=== PATIENT | female | born 1940 | race Caucasian/White ===

== ENCOUNTER → 2021-01-11 12:25 | Outpatient (CLI) | payer MEDICARE, SELFPAY ==
[2021-01-11 18:50] LABS: Add Manual Diff / Slide Review NO; Basophils Absolute Auto 100 /uL (0-100); Basophils Percent Auto 0.8 % (0-2); Eosinophils Absolute Auto 200 /uL (0-450); Eosinophils Percent Auto 2.6 % (2-4); Hematocrit 38.6 % (36-46); Hemoglobin 12.9 g/dL (12.0-16.0); Lymphocytes Absolute Auto 1600 /uL (1100-4500); Lymphocytes Percent Auto 19.6 % (25-40); Mean Corpuscular HGB Conc 33.5 % (30-36); Mean Corpuscular Hemoglobin 30.3 PG (26-34); Mean Corpuscular Volume 90.6 fL (80-100); Monocytes Absolute Auto 800 /uL (0-900); Monocytes Percent Auto 9.9 % (3-14); Neutrophils Absolute Auto 5400 /uL (1500-7000); Neutrophils Percent Auto 67.1 % (50-75); Platelet Count 229 X10^3/uL (150-400); Red Blood Cell Count 4.26 X10^6/uL (4.0-5.2); Red Cell Distribution Width 17.2 % (11.6-14.8)
[2021-01-11 19:03] LABS: Alanine Aminotransferase 209 IU/L (<35); Albumin 3.7 g/dL (3.5-5.0); Albumin Globulin Ratio 1.5 (1.0-2.8); Alkaline Phosphatase 171 U/L (38-126); Aspartate Aminotransferase 241 IU/L (14-36); BUN Creatinine Ratio 17.1 (6-22); Bilirubin Total 0.3 mg/dL (0.2-1.3); Blood Urea Nitrogen 12 mg/dL (7-17); Calcium 9.8 mg/dL (8.4-10.2); Carbon Dioxide 27 mmol/L (22-32); Chloride 103 mmol/L (98-107); Estimated Glomerular Filt Rate > 60.0 mL/min (>60); Globulin 2.4 g/dL (1.7-4.1); Glucose 137 mg/dL (80-110); HEMOLYSIS < 15 (0-50); Potassium 3.8 mmol/L (3.4-5.1); Sodium 135 mmol/L (137-145); Total Protein 6.1 g/dL (6.3-8.2)
[2021-01-11 19:42] LABS: COVID19 - ORCAS (NP or Nasal) Negative (Negative)
== END ==
PROVIDERS: PCP Physician Assistant; Visit Provider Physician Assistant
DX: R19.7 Diarrhea, unspecified (principal); R68.83 Chills (without fever); K57.92 Diverticulitis of intestine, part unspecified, without perforation or abscess without bleeding; Z20.822 Contact with and (suspected) exposure to COVID-19
CPT/HCPCS: 80053; 85025; U0003

== ENCOUNTER 2021-01-13 13:54 | Emergency (ER) | payer MEDICARE, SELFPAY ==
[2021-01-13 14:10] VITALS: BP 162/70; PULSE 79; RESP 14; TEMP 36.5; O2SAT 97; BMI 18.5
[2021-01-13 14:28] LABS: Add Manual Diff / Slide Review NO; Basophils Absolute Auto 0 /uL (0-100); Basophils Percent Auto 0.5 % (0-2); Eosinophils Absolute Auto 200 /uL (0-450); Hematocrit 39.4 % (36-46); Hemoglobin 12.8 g/dL (12.0-16.0); Lymphocytes Absolute Auto 1700 /uL (1100-4500); Lymphocytes Percent Auto 18.9 % (25-40); Mean Corpuscular HGB Conc 32.5 % (30-36); Mean Corpuscular Hemoglobin 29.6 PG (26-34); Monocytes Absolute Auto 1000 /uL (0-900); Monocytes Percent Auto 11.2 % (3-14); Neutrophils Absolute Auto 6100 /uL (1500-7000); Neutrophils Percent Auto 67.4 % (50-75); Platelet Count 250 X10^3/uL (150-400); Red Blood Cell Count 4.33 X10^6/uL (4.0-5.2); Red Cell Distribution Width 17.1 % (11.6-14.8)
[2021-01-13 14:38] LABS: Alanine Aminotransferase 100 IU/L (<35); Albumin 3.9 g/dL (3.5-5.0); Albumin Globulin Ratio 1.4 (1.0-2.8); Alkaline Phosphatase 110 U/L (38-126); Aspartate Aminotransferase 48 IU/L (14-36); BUN Creatinine Ratio 18.3 (6-22); Bilirubin Total 0.2 mg/dL (0.2-1.3); Blood Urea Nitrogen 15 mg/dL (7-17); Calcium 9.9 mg/dL (8.4-10.2); Carbon Dioxide 29 mmol/L (22-32); Chloride 103 mmol/L (98-107); Estimated Glomerular Filt Rate > 60.0 mL/min (>60); Globulin 2.7 g/dL (1.7-4.1); Glucose 106 mg/dL (80-110); HEMOLYSIS < 15 (0-50); Lipase 50 U/L (23-300); Potassium 3.8 mmol/L (3.4-5.1); Sodium 139 mmol/L (137-145); Total Protein 6.6 g/dL (6.3-8.2)
--- NOTE | 2021-01-13 18:17 | ED.RECABL ---
HPI - Recheck/Abnormal Lab/Rx General Chief Complaint: Recheck/Abnormal Lab/Rx Stated Complaint: High liver enzymes, sent by [facility] Time Seen by Provider: 01/13/21 18:08 Source: patient Mode of arrival: Ambulatory Limitations: no limitations History of Present Illness HPI narrative: 80-year-old woman with history of hypothyroidism, diabetes, hypertension and prior episodes of diverticulitis presents with a report of abnormal liver function tests on lab work done yesterday when she was diagnosed by her primary care provider with diverticulitis and started on Cipro and metronidazole. She notes that she has been having mild lower abdominal pain for about a month and had 12 days of diarrhea that resolved 48 hours ago. She was having increasing left lower quadrant pain and beginning to feel low-grade chills and was seen by her provider and started on Cipro and Flagyl and within 48 hours was feeling better. Also within 48 hours she was contacted by her provider with instructions to go to the emergency department because her liver enzymes were elevated. Related Data Home Medications Medication Instructions Recorded Confirmed aspirin 325 mg tablet 325 mg PO DAILY 01/11/21 01/11/21 calcium carbonate 600 mg calcium 600 mg PO BID 01/11/21 01/11/21 (1,500 mg) tablet cholecalciferol (vitamin D3) 25 25 mcg PO DAILY 01/11/21 01/11/21 mcg (1,000 unit) capsule esomeprazole magnesium 40 mg 40 mg PO DAILY 01/11/21 01/11/21 capsule,delayed release glimepiride 2 mg tablet (Amaryl) 2 mg PO QAM 01/11/21 01/11/21 insulin glargine 100 unit/mL 3 unit SUBCUT QPM ml 01/11/21 01/11/21 subcutaneous solution (Lantus U-100 Insulin) insulin lispro 100 unit/mL 6 unit SUBCUT DAILY ml 01/11/21 01/11/21 subcutaneous pen levothyroxine 75 mcg tablet 75 mcg PO DAILY 01/11/21 01/11/21 (Synthroid) losartan 25 mg tablet (Cozaar) 25 mg PO DAILY 01/11/21 01/11/21 metformin 500 mg tablet,extended 2,000 mg PO QPM tab 01/11/21 01/11/21 release 24hr polyethylene glycol 3350 17 17 g PO DAILY 01/11/21 01/11/21 gram/dose oral powder (Miralax) rosuvastatin 5 mg tablet (Crestor) 5 mg PO DAILY 01/11/21 01/11/21 trazodone 50 mg tablet 25 mg PO BEDTIME PRN 01/11/21 01/11/21 vit B complex 100 combo no.2 100 tab PO 01/11/21 01/11/21 mg tablet,extended release (B-100 Complex ER) Previous Rx's Medication Instructions Recorded ciprofloxacin HCl 500 mg tablet 500 mg PO BID #20 tab 01/11/21 (Cipro) metronidazole 500 mg tablet 500 mg PO TID #30 tab 01/11/21 (Flagyl) Allergies Allergy/AdvReac Type Severity Reaction Status Date / Time meperidine [From Demerol] Allergy Mild itching Verified 01/13/21 14:10 Review of Systems Review of Systems Narrative: Pertinent positive and negative findings as per HPI Remainder of review of systems is otherwise unremarkable for Constitutional: Fevers, weakness ENT: No sore throat, neck pain, ear pain CV: Chest pain, palpitations, Respiratory: Cough, wheeze, dyspnea : Dysuria, hematuria, Patient History Medical History (Updated 01/14/21 @ 16:52 by Adri Lancaster MD) Diabetes Diverticulitis Hyperlipidemia Hypertension Hypothyroidism (acquired) Social History Smoking Status: Never smoker Smoking Status: Never smoker alcohol intake frequency: 0-2 drinks per day Substance Use Type: does not use Exam Narrative Exam Narrative: General: Healthy appearing, in no acute distress. Able to give a complete and coherent history. Well-nourished well-developed HEENT: Moist mucous membranes, normal sclera with reactive pupils, Respiratory: Lungs are clear to auscultation, no wheezing no rales no rhonchi. Full and symmetrical air movement Cardiac: Regular rate and rhythm no murmurs no bruits Abdomen: Soft, mild tenderness in the left lower quadrant without rebound or guarding, good bowel tones, no flank pain Skin: Warm and dry, no rashes, no jaundice Neurologic: Grossly neurologically intact with no obvious asymmetries or abnormalities Extremities: No trauma, well perfused Psych: Cooperative, appropriate insight and affect Initial Vital Signs Initial Vital Signs: Vital Signs Temperature 97.7 F 01/13/21 14:10 Pulse Rate 79 07/29/21 14:10 Respiratory Rate 14 01/13/21 14:10 Blood Pressure 162/70 H 01/13/21 14:10 Pulse Oximetry 97 01/13/21 14:10 Course Orders Ordered: ED Orders 01/13/21 14:20 Complete Blood Count AUTO DIFF Stat Comprehensive Metabolic Panel Stat Lipase Stat Vital Signs Vital signs: Vital Signs - 8 hr 01/13/21 14:10 Temperature 97.7 F Pulse Rate 79 Respiratory Rate 14 Blood Pressure 162/70 H Pulse Oximetry 97 MDM - Recheck/Abnormal Lab/Rx Lab Data Result diagrams: 01/13/21 14:20 01/13/21 14:20 Labs: Lab Results 01/13/21 01/13/21 Range/Units 14:20 14:20 WBC 9.0 (4.5-11.0) X10^3/uL RBC 4.33 (4.0-5.2) X10^6/uL Hgb 12.8 (12.0-16.0) g/dL Hct 39.4 (36-46) % MCV 91.0 (80-100) fL MCH 29.6 (26-34) PG MCHC 32.5 (30-36) % RDW 17.1 H (11.6-14.8) % Plt Count 250 (150-400) X10^3/uL Neut % (Auto) 67.4 (50-75) % Lymph % (Auto) 18.9 L (25-40) % [place] % (Auto) 11.2 (3-14) % Eos % (Auto) 2.0 (2-4) % Baso % (Auto) 0.5 (0-2) % Neut # (Auto) 6100 (5222-1732) /uL Lymph # (Auto) 1700 (4320-8738) /uL [place] # (Auto) 1000 H (0-900) /uL Eos # (Auto) 200 (0-450) /uL Baso # (Auto) 0 (0-100) /uL Sodium 139 (137-145) mmol/L Potassium 3.8 (3.4-5.1) mmol/L Chloride 103 (98-107) mmol/L Carbon Dioxide 29 (22-32) mmol/L BUN 15 (7-17) mg/dL Creatinine 0.82 (0.52-1.04) mg/dL Estimated GFR > 60.0 (>60) mL/min BUN/Creatinine Ratio 18.3 (6-22) Glucose 106 (80-110) mg/dL Calcium 9.9 (8.4-10.2) mg/dL Total Bilirubin 0.2 (0.2-1.3) mg/dL AST 48 H (14-36) IU/L ALT 100 H (<35) IU/L Alkaline Phosphatase 110 D (38-126) U/L Total Protein 6.6 (6.3-8.2) g/dL Albumin 3.9 (3.5-5.0) g/dL Globulin 2.7 (1.7-4.1) g/dL Albumin/Globulin Ratio 1.4 (1.0-2.8) Lipase 50 (23-300) U/L MDM Narrative Medical decision making narrative: 80-year-old woman with blood done on [facility] 48 hours ago increased LFTs. Started on antibiotics for diverticulitis. Seen 48 hours later significantly improved, blood work is Re checked in LFTs are decreasing. There is no evidence of acute hepatitis, pancreatitis or gallstone disease. I believe that the initial elevated LFTs were likely an acute phase reactant and responding appropriately to treatment. Patient is reassured. Labs reviewed with her in detail. She is safe for home discharge. Discharge Plan Departure Patient Disposition: Home Clinical Impression: Diverticulitis, Abnormal liver enzymes Instructions: DI for Diverticulitis Activity Restrictions/Additional Instructions: Thank you for coming in today Your liver enzymes were a bit elevated when you are initially diagnosed with diverticulitis. It is not uncommon for your liver to respond like that with acute infections. You have said that your feeling better with the appropriate antibiotics you are currently taking and your blood work seems to indicate that as well. Your liver enzymes are trending back down and should be checked in the next couple of months to make sure that there completely return to normal. Please finish the course of antibiotics, the Cipro and Flagyl, and do continue the probiotics as well. I hope you see [facility] on your way home to make this trip a bit better! Prescriptions: No Action aspirin 325 mg tablet 325 mg PO DAILY RF: 0 glimepiride [Amaryl] 2 mg tablet 2 mg PO QAM RF: 0 levothyroxine [Synthroid] 75 mcg tablet 75 mcg PO DAILY RF: 0 calcium carbonate 600 mg calcium (1,500 mg) tablet 600 mg PO BID RF: 0 cholecalciferol (vitamin D3) 25 mcg (1,000 unit) capsule 25 mcg PO DAILY RF: 0 B-100 Complex 100 mg tablet extended release PO RF: 0 metformin 500 mg tablet extended release 24hr 2,000 mg PO QPM RF: 0 losartan [Cozaar] 25 mg tablet 25 mg PO DAILY RF: 0 esomeprazole magnesium 40 mg capsule,delayed release(DR/EC) 40 mg PO DAILY RF: 0 rosuvastatin [Crestor] 5 mg tablet 5 mg PO DAILY RF: 0 insulin lispro 100 unit/mL insulin pen 6 unit SUBCUT DAILY RF: 0 Lantus U-100 Insulin 100 unit/mL solution 3 unit SUBCUT QPM RF: 0 trazodone 50 mg tablet 25 mg PO BEDTIME PRNRF: 0 polyethylene glycol 3350 [Miralax] 17 gram/dose powder 17 g PO DAILY RF: 0 ciprofloxacin HCl [Cipro] 500 mg tablet 500 mg PO BID Qty: 20 RF: 0 metronidazole [Flagyl] 500 mg tablet 500 mg PO TID Qty: 30 RF: 0 Referrals: Cathleen So PA-C [Primary Care Provider] -
[2021-01-13 18:41] VITALS: BP 167/73; PULSE 71; O2SAT 100
== END 2021-01-13 18:41 | disposition home or self-care (01) ==
PROVIDERS: Emergency Medicine; Emergency Provider Emergency Medicine; PCP Physician Assistant
DX: K57.92 Diverticulitis of intestine, part unspecified, without perforation or abscess without bleeding (principal); R74.8 Abnormal levels of other serum enzymes; R10.32 Left lower quadrant pain
CPT/HCPCS: 36415; 80053; 83690; 85025; 99281; 99283